=== PATIENT | female | born 1970 ===

== ENCOUNTER 2020-04-24 08:09 | Outpatient (CLI) | payer OTHER | END 2020-04-24 08:10 | disposition home or self-care (01) | LOC: CSHCP 08:09 | PROVIDERS: ATTEND Family Medicine | DX: J44.9 Chronic obstructive pulmonary disease, unspecified (principal); R94.2 Abnormal results of pulmonary function studies | CPT/HCPCS: 94060; 94726; 94729; 94760 ==